=== PATIENT | female | born 1990 | race Caucasian/White ===

== ENCOUNTER 2019-05-12 12:20 | Emergency (ER) | payer BC ==
[2019-05-12 12:27] VITALS: BP 136/69; PULSE 76
--- NOTE | 2019-05-12 15:08 | EDM.PDOC ---
ED HPI GENERAL MEDICAL PROBLEM - General Chief Complaint: [employer] Problem Stated Complaint: 11 WEEKS PG/SPOTTING Time Seen by Provider: 05/12/19 12:40 Source of Information: Reports: Patient History Limitations: Reports: No Limitations - History of Present Illness INITIAL COMMENTS - FREE TEXT/NARRATIVE: Patient presents to ER with complaints of vaginal bleeding/spotting. States noted blood on the tissue when wiping and a small amount on her underwear today. No cramping. Is 11 weeks gestation with twins. Denies burning with urination. No cold symptoms or fevers. No recent sexual intercourse. Did have a recent ultrasound with her visit with Dr. Forbes, was no concerns at that time. Does admit that she spotted with her other . This is her 3rd , had one live , one miscarriage. Onset: Today Duration: Minutes: Associated Symptoms: Reports: No Other Symptoms - Related Data Allergies Allergy/AdvReac Type Severity Reaction Status Date / Time Sulfa (Sulfonamide Allergy Hives Verified 05/12/19 12:27 Antibiotics) Home Meds: Home Meds Aspirin 81 mg PO DAILY 05/12/19 [History] No122/Iron/Folic Acid [ Multi Tablet] 1 tab PO DAILY 05/12/19 [ History] Past Medical History [employer] History: Reports: , Spontaneous - Past Surgical History HEENT Surgical History: Reports: Adenoidectomy, Tonsillectomy Female Surgical History: Reports: Section Social & Family History - Family History Family Medical History: Noncontributory - Tobacco Use Smoking Status *Q: Never Smoker - Caffeine Use Caffeine Use: Reports: None - Recreational Drug Use Recreational Drug Use: No ED ROS GENERAL - Review of Systems Review Of Systems: See Below Constitutional: Reports: Fatigue. Denies: Fever, Chills, Malaise, Weakness HEENT: Reports: No Symptoms Respiratory: Reports: No Symptoms Cardiovascular: Reports: No Symptoms GI/Abdominal: Reports: No Symptoms : Reports: Other (vaginal bleeding) Musculoskeletal: Reports: No Symptoms Skin: Reports: No Symptoms Neurological: Reports: No Symptoms ED EXAM - Physical Exam Exam: See Below Exam Limited By: No Limitations General Appearance: Alert, WD/WN, No Apparent Distress Ears: Normal External Exam, Normal TMs Nose: Normal Inspection, Normal Mucosa, No Blood Throat/Mouth: Normal Inspection, Normal Oropharynx Head: Normocephalic Neck: Normal Inspection, Supple, Non-Tender Respiratory/Chest: No Respiratory Distress, Lungs Clear, Normal Breath Sounds Cardiovascular: Regular Rate, Rhythm GI/Abdominal Exam: Normal Bowel Sounds, Soft, Non-Tender (Female) Exam: Vaginal Bleeding, Other (no pelvic exam done; ultrasound obtained) Heart Tones: Present Extremities: Normal Inspection, No Pedal Edema Neurological: Alert, Oriented Course - Vital Signs Last Recorded V/S: Last Vital Signs Temp 98.4 F 05/12/19 12:24 Pulse 76 05/12/19 12:24 Resp 18 05/12/19 12:24 BP 136/69 05/12/19 12:24 Pulse Ox 98 05/12/19 12:24 - Orders/Labs/Meds Orders: Active Orders 24 hr Category Date Time Status OB 1st Tri Ea Addl Gest [US] Stat Exams 05/12/19 12:45 Taken OB Ltd 1 or More Fetus [US] Stat Exams 05/12/19 12:52 Taken Labs: Laboratory Tests 05/12/19 Range/Units 13:24 Urine Color Light yellow (YELLOW) Urine Appearance Clear (CLEAR) Urine pH 7.0 (4.5-8.0) Ur Specific [place] 1.010 (1.003-1.020) Urine Protein Negative (NEGATIVE) mg/dL Urine Glucose (UA) Negative (NEGATIVE) mg/dL Urine Ketones Negative (NEGATIVE) mg/dL Urine Occult Blood Trace-intact H (NEGATIVE) Urine Nitrite Negative (NEGATIVE) Urine Bilirubin Negative (NEGATIVE) Urine Urobilinogen 0.2 (0.2-1.0) EU/dL Ur Leukocyte Esterase Negative (NEGATIVE) Urine RBC 0-5 (0-5) /HPF Urine WBC Not seen (0-5) /HPF Ur Epithelial Cells Occasional H (NOT SEEN) /HPF - Re-Assessments/Exams Free Text/Narrative Re-Assessment/Exam: 05/12/19 1500 Urine clear Ultrasound results received, stable, no acute concerns. Patient informed. Departure - Departure Time of Disposition: 15:04 Disposition: Home, Self-Care 01 Condition: Good Clinical Impression: Spotting affecting in first trimester - Discharge Information *PRESCRIPTION DRUG MONITORING PROGRAM REVIEWED*: No *COPY OF PRESCRIPTION DRUG MONITORING REPORT IN PATIENT BENITO: No Referrals: PCP,None [Primary Care Provider] - Forms: ED Department Discharge Additional Instructions: 1. Rest 2. Push fluids 3. Pelvic rest 4. Follow up with Dr. Forbes as planned - My Orders Last 24 Hours: My Active Orders 05/12/19 12:45 OB 1st Tri Ea Addl Gest [US] Stat 05/12/19 12:52 OB Ltd 1 or More Fetus [US] Stat - Assessment/Plan Last 24 Hours: My Active Orders 05/12/19 12:45 OB 1st Tri Ea Addl Gest [US] Stat 05/12/19 12:52 OB Ltd 1 or More Fetus [US] Stat
== END 2019-05-12 15:10 | disposition home or self-care (01) ==
LOC: CC.ED 12:20
DX: O26.851 Spotting complicating pregnancy, first trimester (principal); Z88.2 Allergy status to sulfonamides; Z3A.11 11 weeks gestation of pregnancy
CPT/HCPCS: 76801; 76802; 76815; 81001; 99284-25